=== PATIENT | male | born 1930 | race Caucasian/White ===

== ENCOUNTER 2018-07-27 09:28 | Emergency (ER) | payer OTHER ==
[2018-07-27] MEDS ORDERED: TRAMADOL HCL 50 MG TAB ONE (10:49)
--- NOTE | 2018-07-27 11:40 | EDPHYS ---
Physician Documentation [facility] Name: David Gutierrez Age: 88 yrs Sex: Male : 1930 Arrival Date: 07/27/2018 Time: 09:32 Bed 18 Private MD: Joe Quintana V ED Physician Mikey Cadet HPI: 07/27 11:30 This 88 yrs old Male presents to ER via Ambulatory with complaints of Back pm1 Pain, Hip Pain. 11:30 The patient presents with pain that is acute, with no known mechanism of injury. The pm1 symptoms are located in the low back. Onset: The symptoms/episode began/occurred 1 month(s) ago. The pain radiates to the right leg. Associated signs and symptoms: Pertinent negatives: abdominal pain, chest pain, constipation, dysuria, fever, incontinence, numbness, tingling. The problem was sustained from unknown cause. Modifying factors: The patient symptoms are alleviated by remaining still, the patient symptoms are aggravated by Standing up from seated position. Severity of symptoms: in the emergency department the symptoms are actually worse. The patient has not experienced similar symptoms in the past. The patient has not recently seen a physician, the patient's primary care provider is Dr. Quintana. Historical: - Allergies: 09:48 No Known Allergies; la1 - PMHx: 09:48 None; la1 - PSHx: 09:48 Knee surgery; Tonsillectomy; la1 - Immunization history:: Adult Immunizations up to date. - Social history:: Smoking status: Patient/guardian denies using tobacco. - Ebola Screening: : No symptoms or risks identified at this time. ROS: 11:30 Constitutional: Negative for fever, chills, and weight loss, Eyes: Negative for injury, pm1 pain, redness, and discharge, ENT: Negative for injury, pain, and discharge, Neck: Negative for injury, pain, and swelling, Cardiovascular: Negative for chest pain, palpitations, and edema, Respiratory: Negative for shortness of breath, cough, wheezing, and pleuritic chest pain, Abdomen/GI: Negative for abdominal pain, nausea, vomiting, diarrhea, and constipation. 11:30 : Negative for injury, bleeding, discharge, and swelling, MS/Extremity: Negative for injury and deformity, Skin: Negative for injury, rash, and discoloration, Neuro: Negative for headache, weakness, numbness, tingling, and seizure. 11:30 Back: Positive for pain with movement, of the right low back. Exam: 11:30 Constitutional: This is a well developed, well nourished patient who is awake, alert, pm1 and in no acute distress. Head/Face: Normocephalic, atraumatic. Eyes: Pupils equal round and reactive to light, extra-ocular motions intact. Lids and lashes normal. Conjunctiva and sclera are non-icteric and not injected. Cornea within normal limits. Periorbital areas with no swelling, redness, or edema. ENT: Nares patent. No nasal discharge, no septal abnormalities noted. Tympanic membranes are normal and external auditory canals are clear. Oropharynx with no redness, swelling, or masses, exudates, or evidence of obstruction, uvula midline. Mucous membranes moist. Neck: Trachea midline, no thyromegaly or masses palpated, and no cervical lymphadenopathy. Supple, full range of motion without nuchal rigidity, or vertebral point tenderness. No Meningismus. Chest/axilla: Normal chest wall appearance and motion. Nontender with no deformity. No lesions are appreciated. Cardiovascular: Regular rate and rhythm with a normal S1 and S2. No gallops, murmurs, or rubs. Normal PMI, no JVD. No pulse deficits. Respiratory: Lungs have equal breath sounds bilaterally, clear to auscultation and percussion. No rales, rhonchi or wheezes noted. No increased work of breathing, no retractions or nasal flaring. Abdomen/GI: Soft, non-tender, with normal bowel sounds. No distension or tympany. No guarding or rebound. No evidence of tenderness throughout. 11:30 Skin: Warm, dry with normal turgor. Normal color with no rashes, no lesions, and no evidence of cellulitis. MS/ Extremity: Pulses equal, no cyanosis. Neurovascular intact. Full, normal range of motion. 11:30 Back: kyphosis, that is marked, scoliosis that is marked. 11:30 Neuro: Orientation: is normal, Motor: moves all fours, strength is 5/5 in all extremities, Sensation: is normal, no obvious gross deficits, Gait: is steady, at a normal pace, without difficulty. Vital Signs: 09:50 Pulse 78; Resp 18; Temp 98.6; Pulse Ox 98% on R/A; Weight 61.23 kg; Height 5 ft. 8 in. la1 (172.72 cm); Pain 5/10; 09:51 BP 135 / 81; la1 09:50 Body Mass Index 20.53 (61.23 kg, 172.72 cm) la1 MDM: 10:19 Patient medically screened. pm1 10:35 Data reviewed: vital signs. Data interpreted: Pulse oximetry: on room air is 98 %. pm1 Interpretation: normal. 11:38 Counseling: I had a detailed discussion with the patient and/or guardian regarding: the pm1 historical points, exam findings, and any diagnostic results supporting the discharge/admit diagnosis, the need for outpatient follow up, to return to the emergency department if symptoms worsen or persist or if there are any questions or concerns that arise at home. Administered Medications: 10:40 Drug: traMADol 50 mg Route: PO; aa5 11:10 Follow up: Response: No adverse reaction aa5 Disposition: 07/27/18 11:39 Discharged to Home. Impression: Radiculopathy, lumbar region. - Condition is Stable. - Discharge Instructions: Lumbosacral Radiculopathy. - Prescriptions for Tramadol 50 mg Oral Tablet - take 1 tablet by ORAL route every 8 hours as needed; 20 tablet. - Medication Reconciliation Form, Thank You Letter, Prescription Opioid Use form. - Follow up: Emergency Department; When: As needed; Reason: Worsening of condition. Follow up: Joe Quintana MD; When: 2 - 3 days; Reason: Recheck today's complaints, Continuance of care, Re-evaluation by your physician. - Problem is new. - Symptoms have improved. Addendum: 08/07/2018 15:24 Co-signature as Attending Physician, Mikey Cadet MD Available for consultation at p s1 all times. . Signatures: Cyndie Chu RN RN aa5 Maurice Rodas RN RN la1 Stewart Valerio, SUPERVISOR CEREAL SUPERVISOR CEREAL pm1 Mikey Cadet MD MD ps1 Corrections: (The following items were deleted from the chart) 07/27 11:50 11:39 07/27/2018 11:39 Discharged to Home. Impression: Radiculopathy, lumbar region. aa5 Condition is Stable. Forms are Medication Reconciliation Form, Thank You Letter, Antibiotic Education, Prescription Opioid Use. Follow up: Emergency Department; When: As needed; Reason: Worsening of condition. Follow up: Joe Quintana; When: 2 - 3 days; Reason: Recheck today's complaints, Continuance of care, Re-evaluation by your physician. Problem is new. Symptoms have improved. pm1
--- NOTE | 2018-07-27 11:40 | ER ---
Nurse's Notes [facility] Name: David Gutierrez Age: 88 yrs Sex: Male : 1930 Arrival Date: 07/27/2018 Time: 09:32 Bed 18 Private MD: Joe Quintana V Diagnosis: Radiculopathy, lumbar region Presentation: 07/27 09:48 Presenting complaint: Patient states: I have been having pain in my right hip for the la1 last month but its getting much worse and I am getting weaker. Transition of care: patient was not received from another setting of care. Onset of symptoms was July 27, 2018. Risk Assessment: Do you want to hurt yourself or someone else? Patient reports no desire to harm self or others. Initial Sepsis Screen: Does the patient meet any 2 criteria? No. Patient's initial sepsis screen is negative. Does the patient have a suspected source of infection? No. Patient's initial sepsis screen is negative. Care prior to arrival: None. 09:48 Method Of Arrival: Ambulatory la1 09:48 Acuity: EDISON 4 la1 Historical: - Allergies: 09:48 No Known Allergies; la1 - PMHx: 09:48 None; la1 - PSHx: 09:48 Knee surgery; Tonsillectomy; la1 - Immunization history:: Adult Immunizations up to date. - Social history:: Smoking status: Patient/guardian denies using tobacco. - Ebola Screening: : No symptoms or risks identified at this time. Screenin:20 Abuse screen: Denies threats or abuse. Nutritional screening: No deficits noted. aa5 Tuberculosis screening: No symptoms or risk factors identified. Fall Risk Ambulatory Aid- Crutches/Cane/Walker (15 pts). Gait- Impaired (20 pts.). Total Rowley Fall Scale indicates Low Risk Score (25-44 pts). Fall prevention measures have been instituted. Assessment: 10:20 General: Appears comfortable, Behavior is calm, cooperative. Pain: Complains of pain in aa5 right low back Pain radiates to right leg Pain currently is 0 out of 10 on a pain scale. Quality of pain is described as sharp, shooting, Pain began approximately 3-4 weeks ago Is intermittent, Aggravated by increased activity, weight bearing. Neuro: Level of Consciousness is awake, alert, obeys commands, Oriented to person, place, time, situation. Cardiovascular: Patient's skin is warm and dry. Respiratory: Airway is patent Respiratory effort is even, unlabored, Respiratory pattern is regular, symmetrical. GI: No signs and/or symptoms were reported involving the gastrointestinal system. : No signs and/or symptoms were reported regarding the genitourinary system. EENT: No signs and/or symptoms were reported regarding the EENT system. Derm: Skin is pink, warm \T\ dry. Musculoskeletal: Range of motion: intact in all extremities, Pt is ambulatory with a cane, scoliosis noted. 11:40 Reassessment: Patient is alert, oriented x 3, equal unlabored respirations, skin aa5 warm/dry/pink. Vital Signs: 09:50 Pulse 78; Resp 18; Temp 98.6; Pulse Ox 98% on R/A; Weight 61.23 kg; Height 5 ft. 8 in. la1 (172.72 cm); Pain 5/10; 09:51 BP 135 / 81; la1 09:50 Body Mass Index 20.53 (61.23 kg, 172.72 cm) la1 ED Course: 09:32 Patient arrived in ED. mr 09:32 Joe Quintana MD is Private Physician. mr 09:49 Triage completed. la1 09:49 Arm band placed on left wrist. la1 09:59 Cyndie Chu, DIANE is Primary Nurse. aa5 10:02 Stewart Valerio NP is PHCP. pm1 10:02 Mikey Cadet MD is Attending Physician. pm1 10:20 Patient has correct armband on for positive identification. Bed in low position. Call aa5 light in reach. Side rails up X 1. Adult w/ patient. 11:39 Joe Quintana MD is Referral Physician. pm1 11:40 No provider procedures requiring assistance completed. aa5 11:40 Patient did not have IV access during this emergency room visit. aa5 Administered Medications: 10:40 Drug: traMADol 50 mg Route: PO; aa5 11:10 Follow up: Response: No adverse reaction aa5 Outcome: 11:39 Discharge ordered by . pm1 11:40 Discharged to home ambulatory, with family. aa5 11:40 Condition: improved 11:40 Discharge instructions given to patient, family, Instructed on discharge instructions, follow up and referral plans. medication usage, Demonstrated understanding of instructions, follow-up care, medications, Prescriptions given X 1. 11:50 Patient left the ED. aa5 Signatures: Adelina Godoy Audri RN RN aa5 Maurice Rodas RN RN la1 Stewart Valerio, FUR GRADER FUR GRADER pm1
[2018-07-27 13:01] VITALS: TEMP 98.6; O2SAT 98
== END 2018-07-27 11:50 | disposition home or self-care (01) ==
LOC: ER 09:28
DX: M54.16 Radiculopathy, lumbar region (principal)
CPT/HCPCS: 99283

== ENCOUNTER 2018-11-24 10:45 | Day surgery (SDC) | payer OTHER ==
[2018-11-24] MEDS ORDERED: CYCLOPENTOLATE 1% OPTH 2 ML ONE (11:33)
[2018-11-24] MEDS ORDERED: PHENYLEPHRINE 10% OPTH 5ML ONE (11:33)
[2018-11-24] MEDS ORDERED: NA CHLORIDE 0.9% 500 ML ONE (11:33)
[2018-11-24] MEDS: BUPIVACAINE 0.25% PF 10 ML VIAL ONE ×3 (11:41→12:26)
[2018-11-24] MEDS: TETRACAINE HCL 0.5% 4ML OPTH ONE ×3 (11:41→12:19)
[2018-11-24] MEDS: LIDOCAINE 2% MPF 5 ML VIAL ONE ×3 (11:41→12:26)
[2018-11-24] MEDS ORDERED: CYCLOPENTOLATE 1% OPTH 2 ML OPTH ONE ×2 (11:43→11:50)
[2018-11-24] MEDS ORDERED: EPINEPHRINE/PF 1 MG/ML AMP ONE (11:43)
[2018-11-24] MEDS ORDERED: BALANCED SALT IRRIG PLAIN 500 ML BTL IRR ONE (11:43)
[2018-11-24] MEDS ORDERED: NS 0.9% VIAL 10 ML ONE (11:43)
[2018-11-24] MEDS ORDERED: DUOVISC 1 KIT OPTH ONE ×2 (11:43→13:36)
[2018-11-24] MEDS ORDERED: PHENYLEPHRINE 10% OPTH 5ML OPTH ONE ×2 (11:43→11:50)
[2018-11-24] MEDS ORDERED: MOXIFLOXACIN HCL 10 DROPS/ML **OR USE OPTH ONE (11:44)
[2018-11-24] MEDS ORDERED: LIDOCAINE 1% MPF 5 ML VIAL ONE (12:36)
[2018-11-24] MEDS ORDERED: PROPOFOL 200 MG/20 ML VIAL IV ONE (12:36)
--- NOTE | 2018-11-24 13:14 | P.BOP ---
Preoperative diagnosis: Nuclear sclerotic cataract OS Postoperative diagnosis: Same Primary procedure: Phacoemulsification with IOL OS Estimated blood loss: None Anesthesia: Local (Subtenon's infusion with anesthesia for cataract surgery) Complications: None Implants: SN60WF +21.5 Transferred to: Other (Day surgery) Condition: Good
[2018-11-24 13:42] VITALS: BP 158/81; TEMP 97.8; O2SAT 96
--- NOTE | 2018-11-24 23:38 | OP ---
Date of Procedure: 11/24/2018 Surgeon: Shu Dutton MD Anesthesiologist: Xander Ward CRNA and Phil Elizondo MD. Preoperative Diagnoses: Nuclear sclerotic cataract, left eye. Operation Performed: Phacoemulsification with intraocular lens implant, left eye. Anesthesia: Per cataract surgery. Complications: None. Description Of Procedure: In day surgery, the patient was prepped with Betadine and draped. A conju nctival incision was made in the inferior nasal quadrant with Debbie scissors. A sub-Tenon block c onsisting of a 1:1 mixture of 2% Xylocaine and 0.25% bupivacaine was placed through the conjunctival incision with a blunt cannula. A Honan balloon was placed over the eye and the patient was transferr ed to the operating room. In the operating room the patient was prepped and draped in the usual sterile fashion for ophthalmic surgery. A lid speculum was placed in the left eye. Two paracentesis sites were made superiorly and inferiorly in the limbal cornea. Viscoat was placed in the anterior chamber and a crescent blade wa s used to make a corneal groove and tunnel, and a keratome was used to enter the anterior chamber. P rovisc was placed in the anterior chamber and a 360 degree capsulotomy was performed with a cystitome . The lens was hydrodissected with BSS and rotated freely. The lens was removed with a stop and cho p technique. 26.34 phaco CDE was used to remove the lens. Residual cortex was removed with the irri gation and aspiration. Provisc was placed in the capsular bag. An SN60WF +21.5 lens was placed in t he capsular bag without complications. Irrigation and aspiration were used to remove residual viscoe lastic. The paracentesis sites were hydrated with BSS. The wound and paracentesis sites were inspec leon and found to be watertight. Vigamox 0.07 cc was placed intracamerally at the end of the procedur e. The eye was irrigated with balanced salt solution. The eye was patched with a soft cotton patch and Pantoja metal shield. The patient was returned to day surgery in good condition. Comments: 1:5000 epi was used in the anterior chamber prior to Viscoat. Extra Viscoat was used in t he middle of phacoemulsification. Discharge Instructions: Mr. Matt is discharged to home in good condition. YAYA/JW Voice ID: [id number] Report ID: [id number]
== END 2018-11-24 13:52 | disposition home or self-care (01) ==
LOC: OR 10:45
PROVIDERS: ATTEND Ophthalmology Retina Specialist
PROC: 08RK3JZ Replacement of Left Lens with Synthetic Substitute, Percutaneous Approach (ICD-10-PCS; principal; 2018-11-24 11:00)
DX: H25.12 Age-related nuclear cataract, left eye (principal)
CPT/HCPCS: 66984; J2704; J0171

== ENCOUNTER 2020-05-29 13:46 | Emergency (ER) | payer OTHER ==
--- NOTE | 2020-05-29 14:29 | RAD REPORT ---
EXAM DESCRIPTION: CT - [id number] - 05/29/2020 2:08 pm CLINICAL HISTORY: fall, trauma to head, face and neck COMPARISON: No comparisons TECHNIQUE: Axial 5 mm thick images of the head were obtained. Axial 2 mm thick images of the cervic al spine were obtained with sagittal and coronal reconstruction images generated and reviewed. All CT scans are performed using dose optimization technique as appropriate and may include automated exposure control or mA/KV adjustment according to patient size. FINDINGS: No intracranial hemorrhage, mass, edema or acute intracranial finding. No cortical edema o r sulcal effacement. Moderate severity atrophy and chronic ischemic changes are present. Ventricles a re in proportion to volume loss. Arterial and physiologic calcifications are present. No extra-axial fluid collections. Mastoid air cells are clear. Minimal air-fluid level in the right maxillary sinus without additional findings that would suggest the fluid is trauma related. No globe or orbital levi nt abnormality. Small left frontal scalp hematoma present. Underlying bone is intact. Right deviation of the nasal septum without fracture. Cervical bodies are normal in height. There is retrolisthesis of C5 and C6 relative to the adjacent C 4 and C7 bodies. Advanced disc space narrowing and degenerative endplate changes present at C3-4, C5- 6 and C6-7. Degenerative changes are present at the dens C1 level. Prominent facet joint degenerative changes are present. Mild foraminal encroachment seen at C3-4. Moderate severity foraminal stenosis on the right at C4-5 and moderate bilateral C6-7 foraminal encroachment. No fracture or acute bony ab normality. No pathologic bone process. Central canal detail is inherently limited. No paraspinal mass or hematoma. IMPRESSION: Moderate severity atrophy and chronic ischemic changes are present with no acute intracr anial finding. Left frontal scalp hematoma present with underlying bone intact. Advanced cervical spine degenerative changes are present without an acute fracture seen. Central glenn l detail is inherently limited.
--- NOTE | 2020-05-29 14:31 | RAD REPORT ---
EXAM DESCRIPTION: RAD - Hand Right 3 View - 05/29/2020 2:16 pm CLINICAL HISTORY: fall COMPARISON: <Comparisons>None. FINDINGS: No fracture is identified. There is no dislocation or periosteal reaction noted. Advanced degenerative change present at the radiocarpal joint space where there is joint space narrowing with deformity and volume loss of the scaphoid and lunate bones. This appears degenerative and not pathol ogic. Degenerative change elsewhere is relatively mild for age. 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 No fracture or acute finding identifiable.
[2020-05-29] MEDS ORDERED: LIDOCAINE 1% W/EPI 1:100,000 MDV 20 ML VIAL ONE (14:46)
--- NOTE | 2020-05-29 15:10 | ER ---
Nurse's Notes [facility] Name: David Gutierrez Age: 89 yrs Sex: Male : 1930 Arrival Date: 05/29/2020 Time: 13:48 Bed 6 Private MD: Diagnosis: Contusion of right hand;Fall on same level from slipping, tripping and stumbling;Laceration without foreign body of unspecified part of head Presentation: 05/29 13:49 Chief complaint: EMS states: tripped and fell onto pavement walking to his neighbors sv house. Abrasion noted to left side of forehead and to the right fingers. Denies LOC. Care prior to arrival: None. Mechanism of Injury: Fall from standing position. Trauma event details: Injury occurred in the [facility], Injury occurred: at home. Injury occurred: May 29, 2020. 13:49 Method Of Arrival: EMS: [facility] sv 13:49 Acuity: EDISON 2 sv 13:53 Coronavirus screen: Client denies travel out of the [place] in the last 14 days. At this sv time, the client does not indicate any symptoms associated with coronavirus-19. Ebola Screen: No symptoms or risks identified at this time. Initial Sepsis Screen: Does the patient meet any 2 criteria? No. Patient's initial sepsis screen is negative. Does the patient have a suspected source of infection? No. Patient's initial sepsis screen is negative. Risk Assessment: Do you want to hurt yourself or someone else? Patient reports no desire to harm self or others. Onset of symptoms was May 29, 2020. Trauma Activation: Not Applicable Physician: ED Physician; Name: ; Notified At: ; Arrived At: Physician: General Surgeon; Name: ; Notified At: ; Arrived At: Physician: Radiology; Name: ; Notified At: ; Arrived At: Physician: Respiratory; Name: ; Notified At: ; Arrived At: Physician: Lab; Name: ; Notified At: ; Arrived At: Historical: - Allergies: 13:52 No Known Allergies; sv - PSHx: 13:52 Knee surgery; Tonsillectomy; sv - Immunization history:: Adult Immunizations up to date. - Social history:: Smoking status: Patient denies any tobacco usage or history of. Screenin:54 Abuse screen: Denies threats or abuse. Denies injuries from another. Tuberculosis sv screening: No symptoms or risk factors identified. 13:54 Nutritional screening: No deficits noted. Fall Risk No fall in past 12 months (0 pts). sv No secondary diagnosis (0 pts). No IV (0 pts). Ambulatory Aid- None/Bed Rest/Nurse Assist (0 pts). Gait- Normal/Bed Rest/Wheelchair (0 pts) Mental Status- Oriented to own ability (0 pts). Total Rowley Fall Scale indicates No Risk (0-24 pts). Primary Survey: 13:49 NO uncontrolled hemorrhage observed. A: The patient is alert. Airway: patent, No sv supplemental oxygen in use on arrival. Oral cavity: clear. Breathing/Chest: Respiratory pattern: regular, Respiratory effort: spontaneous, unlabored, Chest inspection: symmetrical rise and fall of the chest. Circulation: Pulses: palpable right radial artery and left radial artery. Skin color: pink, Skin temperature: warm, dry. Disability Alert. Exposure/Environment: All clothing and personal items were removed. Forensic evidence collection is not deemed to be indicated at this time. Items placed in patient belonging bag. There is no evidence of uncontrolled external bleeding. 14:19 Reassessment Airway Airway Patent Oxygen No O2 Oral cavity Clear Trachea Midline sv Breathing/Chest Respiratory pattern Regular Respiratory effort Spontaneous Unlabored Chest inspection Symmetrical Circulation Pulses Palpable Color [place] Temperature Warm Dry Disability Alert. Secondary Survey: 13:49 HEENT: Head Other abrasion to the left forehead. Gastrointestinal: No deficits noted. sv : No signs and/or symptoms were reported regarding the genitourinary system. Musculoskeletal: No signs and/or symptoms reported regarding the musculoskeletal system. Assessment: 15:04 Reassessment: Patient appears in no apparent distress at this time. No changes from sv previously documented assessment. Patient and/or family updated on plan of care and expected duration. Pain level reassessed. Patient is alert, oriented x 3, equal unlabored respirations, skin warm/dry/pink. 15:35 Reassessment: Patient appears in no apparent distress at this time. No changes from sv previously documented assessment. Patient and/or family updated on plan of care and expected duration. Pain level reassessed. Patient is alert, oriented x 3, equal unlabored respirations, skin warm/dry/pink. Vital Signs: 13:51 BP 161 / 74; Pulse 85; Resp 16; Temp 98.7; Pulse Ox 98% ; Pain 0/10; sv 14:21 BP 151 / 73; Pulse 84; Resp 16; Temp 98.8; Pulse Ox 98% ; sv 15:04 BP 143 / 70; Pulse 66; Resp 16; Temp 98.7; Pulse Ox 96% ; sv [place] Coma Score: 13:51 Eye Response: spontaneous(4). Verbal Response: oriented(5). Motor Response: obeys sv commands(6). Total: 15. 14:21 Eye Response: spontaneous(4). Verbal Response: oriented(5). Motor Response: obeys sv commands(6). Total: 15. 15:04 Eye Response: spontaneous(4). Verbal Response: oriented(5). Motor Response: obeys sv commands(6). Total: 15. Trauma Score (Adult): 13:51 Eye Response: spontaneous(1); Verbal Response: oriented(1); Motor Response: obeys sv commands(2); Systolic BP: > 89 mm Hg(4); Respiratory Rate: 10 to 29 per min(4); [place] Score: 15; Trauma Score: 12 14:21 Eye Response: spontaneous(1); Verbal Response: oriented(1); Motor Response: obeys sv commands(2); Systolic BP: > 89 mm Hg(4); Respiratory Rate: 10 to 29 per min(4); [place] Score: 15; Trauma Score: 12 15:04 Eye Response: spontaneous(1); Verbal Response: oriented(1); Motor Response: obeys sv commands(2); Systolic BP: > 89 mm Hg(4); Respiratory Rate: 10 to 29 per min(4); Kenneth Score: 15; Trauma Score: 12 ED Course: 13:48 Patient arrived in ED. sv 13:48 Delfina Bojorquez RN is Primary Nurse. sv 13:49 Aneudy Mueller PA is PHCP. cp 13:49 Nagi Payne MD is Attending Physician. cp 13:51 Triage completed. sv 13:54 Patient has correct armband on for positive identification. Bed in low position. Call sv light in reach. Side rails up X2. Pulse ox on. NIBP on. Door closed. Head of bed elevated. 13:55 Nurse Practitioner and/or Physician Call Center Director to see patient. sv 13:55 Arm band placed on. sv 13:55 Patient maintains SpO2 saturation greater than 95% on room air. sv 13:55 Thermoregulation: warm blanket given to patient. sv 14:08 CT Head C Spine In Process Unspecified. EDMS 14:15 XRAY Hand RIGHT 3 View In Process Unspecified. EDMS 14:18 Patient moved back from radiology. sv 14:22 Awaiting radiology results. sv 15:10 Assist provider with laceration repair on forehead that was 2.5 cm. or less using sv sutures. Set up tray. Performed by Aneudy CAMPOVERDE Dressed with 4X4s, Patient tolerated well. 15:19 Dressings: non-adherent dressing x 1 forehead Tegaderm X 1; forehead triple anitbiotic dh3 applied to forehead. 15:35 Patient did not have IV access during this emergency room visit. sv Administered Medications: 15:08 Drug: Lidocaine-Epinephrine -1%: (1:100,000) 10 ml {Note: given to Aneudy CAMPOVERDE for sv procedure.} Volume: 20 ml; Route: Infiltration; Intake: 13:51 PO: 0ml; Total: 0ml. sv 14:21 PO: 0ml; Total: 0ml. sv 15:04 PO: 0ml; Total: 0ml. sv Output: 13:51 Urine: 0ml; Total: 0ml. sv 14:21 Urine: 0ml; Total: 0ml. sv 15:04 Urine: 0ml; Total: 0ml. sv Outcome: 15:10 Discharge ordered by MD. cp 15:35 Patient left the ED. sv 15:35 Discharged to home via wheelchair, with family. sv 15:35 Condition: stable 15:35 Condition: improved 15:35 Discharge instructions given to patient, family, Instructed on discharge instructions, follow up and referral plans. wound care, Demonstrated understanding of instructions, follow-up care, wound care. 15:35 Patient's length of stay was not longer than 2 hours. sv Signatures: Dispatcher [employer] Delfina Tillman RN RN Aneudy Luis PA PA cp Herrera, Deanna 3 Corrections: (The following items were deleted from the chart) 18:09 15:35 No provider procedures requiring assistance completed. sv sv
--- NOTE | 2020-05-29 15:10 | EDPHYS ---
Physician Documentation [facility] Name: David Gutierrez Age: 89 yrs Sex: Male : 1930 Arrival Date: 05/29/2020 Time: 13:48 Bed 6 Private MD: ED Physician Nagi Payne HPI: 05/29 13:49 This 89 yrs old Male presents to ER via Unassigned with complaints of Fall cp Injury. 13:49 Details of fall: The patient fell from an upright position, while walking, and struck a cp concrete surface. Onset: The symptoms/episode began/occurred just prior to arrival. Associated injuries: The patient sustained injury to the head, laceration, of the forehead, right hand, contusion. Historical: - Allergies: 13:52 No Known Allergies; sv - PSHx: 13:52 Knee surgery; Tonsillectomy; sv - Immunization history:: Adult Immunizations up to date. - Social history:: Smoking status: Patient denies any tobacco usage or history of. ROS: 13:50 Constitutional: Negative for body aches, chills, fever, poor PO intake. cp 13:50 Neck: Negative for pain with movement, pain at rest, stiffness. 13:50 Cardiovascular: Negative for chest pain, palpitations. 13:50 Respiratory: Negative for cough, shortness of breath, wheezing. 13:50 Abdomen/GI: Negative for abdominal pain, nausea, vomiting, diarrhea, constipation. 13:50 Back: Negative for pain at rest, pain with movement. 13:50 MS/extremity: Positive for ecchymosis, of the right hand. 13:50 Skin: Positive for laceration(s), of the forehead. 13:50 Neuro: Negative for altered mental status, dizziness, loss of consciousness, syncope, weakness. 13:50 All other systems are negative. Exam: 13:51 Constitutional: The patient appears in no acute distress, alert, awake, cp non-diaphoretic, non-toxic, well developed, well nourished. 13:51 Head/face: Noted is a laceration(s), of the forehead. 13:51 Eyes: Periorbital structures: appear normal, Pupils: equal, round, and reactive to light and accomodation, Extraocular movements: intact throughout, Conjunctiva: normal, no exudate, no injection, Lids and lashes: appear normal, bilaterally. 13:51 ENT: External ear(s): are unremarkable, Nose: is normal, Mouth: Lips: moist, Oral mucosa: moist, Posterior pharynx: Airway: no evidence of obstruction, patent. 13:51 Neck: C-spine: C-collar placed in ED. 13:51 Chest/axilla: Inspection: Palpation: crepitus, is not appreciated, tenderness, is not cp appreciated. 13:51 Cardiovascular: Rate: normal. 13:51 Respiratory: the patient does not display signs of respiratory distress, Respirations: normal, no use of accessory muscles, no retractions, labored breathing, is not present, Breath sounds: are clear throughout, no decreased breath sounds. 13:51 Abdomen/GI: Inspection: abdomen appears normal, Palpation: abdomen is soft and non-tender, in all quadrants. 13:51 Musculoskeletal/extremity: Extremities: grossly normal except: noted in the right hand: cp ecchymosis, tenderness. 13:51 Back: pain, is absent, ROM is normal. cp 13:51 Neuro: Orientation: to person, place \T\ time. Mentation: is normal, Cerebellar function: Romberg testing is negative, normal finger to nose testing, Motor: moves all fours, strength is normal, Sensation: is normal. Vital Signs: 13:51 BP 161 / 74; Pulse 85; Resp 16; Temp 98.7; Pulse Ox 98% ; Pain 0/10; sv 14:21 BP 151 / 73; Pulse 84; Resp 16; Temp 98.8; Pulse Ox 98% ; sv 15:04 BP 143 / 70; Pulse 66; Resp 16; Temp 98.7; Pulse Ox 96% ; sv Clifford Coma Score: 13:51 Eye Response: spontaneous(4). Verbal Response: oriented(5). Motor Response: obeys sv commands(6). Total: 15. 14:21 Eye Response: spontaneous(4). Verbal Response: oriented(5). Motor Response: obeys sv commands(6). Total: 15. 15:04 Eye Response: spontaneous(4). Verbal Response: oriented(5). Motor Response: obeys sv commands(6). Total: 15. Trauma Score (Adult): 13:51 Eye Response: spontaneous(1); Verbal Response: oriented(1); Motor Response: obeys sv commands(2); Systolic BP: > 89 mm Hg(4); Respiratory Rate: 10 to 29 per min(4); Kenneth Score: 15; Trauma Score: 12 14:21 Eye Response: spontaneous(1); Verbal Response: oriented(1); Motor Response: obeys sv commands(2); Systolic BP: > 89 mm Hg(4); Respiratory Rate: 10 to 29 per min(4); Kenneth Score: 15; Trauma Score: 12 15:04 Eye Response: spontaneous(1); Verbal Response: oriented(1); Motor Response: obeys sv commands(2); Systolic BP: > 89 mm Hg(4); Respiratory Rate: 10 to 29 per min(4); Clifford Score: 15; Trauma Score: 12 Laceration: 15:06 Wound Repair of 3.5cm ( 1.4in ) subcutaneous laceration to forehead. Irregularly cp shaped.. Distal neuro/vascular/tendon intact. Anesthesia: Wound infiltrated with 6 mls of 1% lidocaine w/ Epi. Wound prep: Simple cleansing by me. Skin closed with 8 5-0 Prolene using interrupted sutures and sterile technique. Dressed with Bacitracin, 4x4's. Patient tolerated well. MDM: 13:58 Patient medically screened. cp 14:00 Differential diagnosis: closed head injury, contusion, fracture, multiple trauma. cp 15:09 Data reviewed: vital signs, nurses notes, radiologic studies, CT scan, plain films. 15:09 Counseling: I had a detailed discussion with the patient and/or guardian regarding: the historical points, exam findings, and any diagnostic results supporting the discharge/admit diagnosis, lab results, the need for outpatient follow up, a family practitioner, to return to the emergency department if symptoms worsen or persist or if there are any questions or concerns that arise at home. Response to treatment: the patient's symptoms have markedly improved after treatment, and as a result, I will discharge patient. 05/29 13:49 Order name: CT Head C Spine; Complete Time: 14:33 05/29 14:34 Interpretation: Reviewed report. 05/29 13:49 Order name: XRAY Hand RIGHT 3 View; Complete Time: 14:33 05/29 14:24 Order name: Dressing - Wound; Complete Time: 15:21 05/29 14:24 Order name: Gloves, Sterile; Complete Time: 14:38 cp 05/29 14:24 Order name: Setup Suture Tray; Complete Time: 14:38 cp Administered Medications: 15:08 Drug: Lidocaine-Epinephrine -1%: (1:100,000) 10 ml {Note: given to Aneudy CAMPOVERDE for sv procedure.} Volume: 20 ml; Route: Infiltration; Disposition: 15:30 Chart complete. cp 15:59 Co-signature as Attending Physician, Nagi Payne MD. rn Disposition: 05/29/20 15:10 Discharged to Home. Impression: Contusion of right hand, Fall on same level from slipping, tripping and stumbling, Laceration without foreign body of unspecified part of head. - Condition is Stable. - Discharge Instructions: Hand Contusion, Head Injury, Adult, Laceration Care, Adult. - Medication Reconciliation Form, Thank You Letter, Antibiotic Education, Prescription Opioid Use form. - Follow up: Private Physician; When: 2 - 3 days; Reason: Wound Recheck. - Problem is new. - Symptoms have improved. Signatures: Dispatcher [employer] Delfina Tillman RN RN sv Nieto, Roman, MD MD rn Page, Corey, PA PA cp Corrections: (The following items were deleted from the chart) 14:07 13:51 Neck: C-spine: cp cp 15:35 15:10 05/29/2020 15:10 Discharged to Home. Impression: Contusion of right hand; Fall on sv same level from slipping, tripping and stumbling; Laceration without foreign body of unspecified part of head. Condition is Stable. Forms are Medication Reconciliation Form, Thank You Letter, Antibiotic Education, Prescription Opioid Use. Follow up: Private Physician; When: 2 - 3 days; Reason: Wound Recheck. Problem is new. Symptoms have improved. cp
[2020-05-29 15:49] VITALS: BP 143/70; TEMP 98.7; O2SAT 96
== END 2020-05-29 15:35 | disposition home or self-care (01) ==
LOC: ER 13:46
PROC: 0JQ10ZZ Repair Face Subcutaneous Tissue and Fascia, Open Approach (ICD-10-PCS; principal; 2020-05-29)
DX: S01.81XA Laceration without foreign body of other part of head, initial encounter (principal); W01.198A Fall on same level from slipping, tripping and stumbling with subsequent striking against other object, initial encounter; Y93.01 Activity, walking, marching and hiking; Y92.9 Unspecified place or not applicable
CPT/HCPCS: 70450; 72125; 99284

== ENCOUNTER 2020-09-09 23:03 | Inpatient (IN) | payer OTHER ==
[2020-09-09 23:34] LABS: Absolute Lymphocytes (CBC) 1.5 K/uL (0.7-4.9); Basophils % 0.8 % (0-1.3); Hematocrit 27.3 % (39.6-49.0); Lymphocytes % 11.1 % (15.3-44.8); MPV 7.9 fL (7.6-11.3); RBC Red Blood Cell Count 3.03 M/uL (4.33-5.43)
[2020-09-09 23:39] LABS: Protime INR 0.98
[2020-09-09 23:57] LABS: ALT/SGPT 17 U/L (12-78); AST/SGOT 19 U/L (15-37); Albumin 3.2 g/dL (3.4-5.0); Alkaline Phosphatase 46 U/L (45-117); BUN Blood Urea Nitrogen 23 mg/dL (7-18); Bicarbonate 26 mmol/L (21-32); Bilirubin Direct < 0.1 mg/dL (0-0.2); Bilirubin Total 0.2 mg/dL (0.2-1.0); Glucose Level 180 mg/dL (74-106); Potassium 4.2 mmol/L (3.5-5.1); Protein, Total 6.3 g/dL (6.4-8.2); Sodium Level 143 mmol/L (136-145)
[2020-09-10 03:41] LABS: Hematocrit 21.7 % (39.6-49.0)
--- NOTE | 2020-09-10 04:06 | ER ---
Nurse's Notes [facility] Name: David Gutierrez Age: 89 yrs Sex: Male : 1930 Arrival Date: 09/09/2020 Time: 23:05 Bed 4 Private MD: Diagnosis: Symptomatic Anemia;Left Ankle Varicose Vein Bleeding-Resolved Presentation: 09/09 23:07 Chief complaint: EMS states: HE WAS GETTING READY TO GO TO BED. WIPING HIS LEFT FOOT, rv STARTED BLEEDING. LOST VOLUME OF BLOOD, WENT UNRESPONSIVE AND HYPOTENSIVE, GIVEN BOLUS NS OF 250ML, WENT CONSCIOUS AND COHERENT. Coronavirus screen: Client denies travel out of the [place] in the last 14 days. Ebola Screen: No symptoms or risks identified at this time. Initial Sepsis Screen: Does the patient meet any 2 criteria? No. Patient's initial sepsis screen is negative. Does the patient have a suspected source of infection? No. Patient's initial sepsis screen is negative. Risk Assessment: Do you want to hurt yourself or someone else? Patient reports no desire to harm self or others. Onset of symptoms was September 09, 2020 at 22:00. 23:07 Method Of Arrival: EMS: [facility] rv 23:07 Acuity: EDISON 2 rv Triage Assessment: 23:10 General: Appears uncomfortable, Behavior is calm, cooperative. Pain:. EENT: No signs rv and/or symptoms were reported regarding the EENT system. Neuro: Level of Consciousness is awake, alert, obeys commands, Oriented to person, place, time, situation. Cardiovascular: Patient's skin is warm and dry. Respiratory: Airway is patent. Derm: Wound noted left lateral malleolus Wound is SMALL WOUND ON TOP OF VARICOSE VEIN. Historical: - Allergies: 23:10 No Known Allergies; rv - Home Meds: 23:10 gabapentin oral oral [Active]; rv - PMHx: 23:10 Dementia; rv - PSHx: 23:10 None; rv - Immunization history:: Adult Immunizations up to date. - Social history:: Smoking status: Patient denies any tobacco usage or history of. Screenin:11 Abuse screen: Denies threats or abuse. Denies injuries from another. Nutritional rv screening: No deficits noted. Tuberculosis screening: No symptoms or risk factors identified. Fall Risk None identified. Assessment: 09/10 04:11 Reassessment: MADHU GUTIERREZ-SON [id number]. rv 05:05 Reassessment: TALKED TO THE PHONE WITH PATIENT'S SON, MADHU GUTIERREZ, CONSENT GIVEN FOR rv BLOOD TRANSFUSION, AWARE OF PLAN OF CARE. 07:00 Reassessment: RECD REPORT FROM [facility]. 89YO WM P/W BLEEDING LLE VARICOSITIES, H/O bp SAME. PT NOTED TO BE ANEMIC. BLOOD TRANSFUSING, CONFIRMED AT B/S. 08:00 Reassessment: 1ST UNIT PRBC COMPLETED. NO S/S ADVERSE REACTION. bp 08:30 Reassessment: 2ND PRBC STARTED. DR QUINTANA AT B/S. bp Vital Signs: 09/09 23:07 BP 146 / 16; Pulse 93; Resp 16; Temp 98.5; Pulse Ox 99% ; Weight 83.91 kg; Height 5 ft. rv 4 in. (162.56 cm); 23:33 BP 122 / 51; Pulse 87; Resp 16; Pulse Ox 99% ; rr5 02/06 00:30 BP 110 / 56; Pulse 76; Resp 16; Pulse Ox 99% on R/A; rv 01:22 BP 116 / 89; Pulse 86; Resp 19; Pulse Ox 99% ; rr5 02:20 BP 110 / 65; Pulse 89; Resp 15; Pulse Ox 98% ; rr5 03:00 BP 104 / 52; Pulse 82; Resp 17; Pulse Ox 97% ; rr5 03:53 BP 115 / 61; Pulse 92; Resp 15; Pulse Ox 97% ; rr5 07:00 BP 113 / 61; Pulse 74; Resp 21; Pulse Ox 98% ; bp 08:00 BP 119 / 56; Pulse 83; Resp 24; Temp 98.6; Pulse Ox 99% ; bp 08:30 BP 106 / 52; Pulse 83; Resp 24; Temp 98.6; Pulse Ox 99% ; bp 10:58 BP 118 / 55; Pulse 84; Resp 22; Pulse Ox 98% ; jl7 02 23:07 Body Mass Index 31.75 (83.91 kg, 162.56 cm) rv ED Course: 09/09 23:00 Maintain EMS IV. Dressing intact. Good blood return noted. Site clean \T\ dry. Gauge \T\ rv site: G20 LAC. 23:05 Patient arrived in ED. rv 23:07 Berger, Kit, MD is Attending Physician. 7 23:09 Triage completed. rv 23:11 Lanre Boland, RN is Primary Nurse. rv 23:11 Arm band placed on right wrist. Patient placed in the treatment room, on a stretcher, rv Patient notified of wait time. 23:11 Patient has correct armband on for positive identification. Pulse ox on. NIBP on. rv 02/06 03:29 Repeat lab(s) drawn. by co, sent to lab. rv 03:49 Notified ED physician of a critical lab result(s). Hgb 7.1. lp1 04:02 Joe Quintana MD is Hospitalizing Provider. 7 05:06 No provider procedures requiring assistance completed. rv 08:36 Patient admitted, IV remains in place. bp 09:00 Inserted saline lock: 20 gauge in right upper arm, using aseptic technique. bp Administered Medications: No medications were administered Outcome: 04:06 Decision to Hospitalize by Provider. mh7 08:36 Condition: stable bp 08:36 Instructed on the need for admit. 10:58 Admitted to Med/surg accompanied by [facility], via stretcher, room 218, with chart. jl7 10:59 Patient left the ED. jl7 Signatures: Stephanie Rodriguez RN RN lp1 Lyle Garza RN RN jl7 Gabe Rhodes, RN RN bp Lanre Boland, RN RN rv Niall Stanton, RN RN rr5 Kit Berger MD MD [facility] Corrections: (The following items were deleted from the chart) 10:58 08:30 Admitted to ER Hold. Please see [facility] for further documentation. jl7 jl7
--- NOTE | 2020-09-10 04:06 | EDPHYS ---
Physician Documentation [facility] Name: David Gutierrez Age: 89 yrs Sex: Male : 1930 Arrival Date: 09/09/2020 Time: 23:05 Bed 4 Private MD: ED Physician Kit Berger HPI: 09/09 23:28 This 89 yrs old Male presents to ER via EMS with complaints of Bleeding mh7 Varicose Vein. 23:28 The patient presents with Bleeding varicose vein on left foot. The complaints affect mh7 the left foot. Context: The problem was sustained at home, resulted from Wiping area while bathing, Mechanism of Injury: Wiping area while bathing the patient can fully bear weight, the patient is able to ambulate, without difficulty. Onset: The symptoms/episode began/occurred today. Modifying factors: The symptoms are alleviated by pressure to wound the symptoms are aggravated by rubbing skin on foot. Associated signs and symptoms: Pertinent negatives: calf tenderness, fever, nausea, numbness, rash, swelling, tingling, vomiting, warmth, weakness. Severity of symptoms: At their worst the symptoms were moderate, earlier today, in the emergency department the symptoms have resolved, and did so just prior to arrival. Historical: - Allergies: 23:10 No Known Allergies; rv - Home Meds: 23:10 gabapentin oral oral [Active]; rv - PMHx: 23:10 Dementia; rv - PSHx: 23:10 None; rv - Immunization history:: Adult Immunizations up to date. - Social history:: Smoking status: Patient denies any tobacco usage or history of. ROS: 23:28 Constitutional: Negative for fever, chills, and weight loss, Eyes: Negative for injury, mh7 pain, redness, and discharge, ENT: Negative for injury, pain, and discharge, Neck: Negative for injury, pain, and swelling, Cardiovascular: Negative for chest pain, palpitations, and edema, Respiratory: Negative for shortness of breath, cough, wheezing, and pleuritic chest pain, Abdomen/GI: Negative for abdominal pain, nausea, vomiting, diarrhea, and constipation, Back: Negative for injury and pain, : Negative for injury, bleeding, discharge, and swelling, Neuro: Negative for headache, weakness, numbness, tingling, and seizure, Psych: Negative for depression, anxiety, suicide ideation, homicidal ideation, and hallucinations, Allergy/Immunology: Negative for hives, rash, and allergies, Endocrine: Negative for neck swelling, polydipsia, polyuria, polyphagia, and marked weight changes, Hematologic/Lymphatic: Negative for swollen nodes, abnormal bleeding, and unusual bruising. Exam: 23:28 Constitutional: This is a well developed, well nourished patient who is awake, alert, mh7 and in no acute distress. Head/Face: Normocephalic, atraumatic. Eyes: Pupils equal round and reactive to light, extra-ocular motions intact. Lids and lashes normal. Conjunctiva and sclera are non-icteric and not injected. Cornea within normal limits. Periorbital areas with no swelling, redness, or edema. Neck: Trachea midline, no thyromegaly or masses palpated, and no cervical lymphadenopathy. Supple, full range of motion without nuchal rigidity, or vertebral point tenderness. No Meningismus. Chest/axilla: Normal chest wall appearance and motion. Nontender with no deformity. No lesions are appreciated. Cardiovascular: Regular rate and rhythm with a normal S1 and S2. No gallops, murmurs, or rubs. Normal PMI, no JVD. No pulse deficits. Respiratory: Lungs have equal breath sounds bilaterally, clear to auscultation and percussion. No rales, rhonchi or wheezes noted. No increased work of breathing, no retractions or nasal flaring. Abdomen/GI: Soft, non-tender, with normal bowel sounds. No distension or tympany. No guarding or rebound. No evidence of tenderness throughout. Back: No spinal tenderness. No costovertebral tenderness. Full range of motion. 23:28 Neuro: Awake and alert, GCS 15, oriented to person, place, time, and situation. Cranial nerves II-XII grossly intact. Motor strength 5/5 in all extremities. Sensory grossly intact. Cerebellar exam normal. Normal gait. Psych: Awake, alert, with orientation to person, place and time. Behavior, mood, and affect are within normal limits. 23:28 Musculoskeletal/extremity: Extremities: all appear grossly normal, with no appreciated pain with palpation, ROM: intact in all extremities, Circulation is intact in all extremities. Pulses: are normal with no appreciated deficits, Perfusion: the patient is normally perfused throughout, Perfusion: the extremity is normally perfused throughout, Calf tenderness, is absent, Edema, is not appreciated, Sensation intact. Compartment Syndrome exam of affected extremity: is normal. no pain, no numbness, no tingling, no sensation deficit, no palor, no weak pulses, Joints: All joints appear normal with full range of motion. Weight bearing: able to fully bear weight, without difficulty, Tendon exam: specific tendon testing normal through active and passive range of motion DVT Exam: no pain, no swelling, no tenderness, negative Homans' sign noted on exam, no appreciated bluish discoloration, no erythema, no increased warmth, Calves: are non-tender, have equal circumference, left foot dorsal and lateral varicose veins without active bleeding, small lateral varicose vein with scab . 23:28 Skin: Varicose veins on dorsal and lateral let foot without active bleeding. Vital Signs: 23:07 BP 146 / 16; Pulse 93; Resp 16; Temp 98.5; Pulse Ox 99% ; Weight 83.91 kg; Height 5 ft. rv 4 in. (162.56 cm); 23:33 BP 122 / 51; Pulse 87; Resp 16; Pulse Ox 99% ; rr5 02/06 00:30 BP 110 / 56; Pulse 76; Resp 16; Pulse Ox 99% on R/A; rv 01:22 BP 116 / 89; Pulse 86; Resp 19; Pulse Ox 99% ; rr5 02:20 BP 110 / 65; Pulse 89; Resp 15; Pulse Ox 98% ; rr5 03:00 BP 104 / 52; Pulse 82; Resp 17; Pulse Ox 97% ; rr5 03:53 BP 115 / 61; Pulse 92; Resp 15; Pulse Ox 97% ; rr5 07:00 BP 113 / 61; Pulse 74; Resp 21; Pulse Ox 98% ; bp 08:00 BP 119 / 56; Pulse 83; Resp 24; Temp 98.6; Pulse Ox 99% ; bp 08:30 BP 106 / 52; Pulse 83; Resp 24; Temp 98.6; Pulse Ox 99% ; bp 10:58 BP 118 / 55; Pulse 84; Resp 22; Pulse Ox 98% ; jl7 09/09 23:07 Body Mass Index 31.75 (83.91 kg, 162.56 cm) rv MDM: 03:59 Differential diagnosis: symptomatic anemia, bleeding varicose vein. Data reviewed: mh7 vital signs, nurses notes, lab test result(s), cardiac enzymes, CBC, electrolytes, urinalysis, EKG. Data interpreted: Pulse oximetry: on room air is 97 %. Interpretation: normal. Counseling: I had a detailed discussion with the patient and/or guardian regarding: the historical points, exam findings, and any diagnostic results supporting the discharge/admit diagnosis, lab results. Response to treatment: the patient's symptoms have markedly improved after treatment. 04:06 Patient medically screened. [facility] 09/09 23:08 Order name: CBC with Diff [facility] 09/09 23:08 Order name: Basic Metabolic Panel [facility] 09/09 23:08 Order name: LFT's [facility] 09/09 23:08 Order name: Protime (+inr); Complete Time: 00:14 [facility] 09/09 23:08 Order name: Ptt, Activated; Complete Time: 00:14 [facility] 09/09 23:09 Order name: CBC with Automated Diff; Complete Time: 00:13 [facility] 09/09 23:09 Order name: Basic Metabolic Panel; Complete Time: 00:14 [facility] 09/09 23:09 Order name: Liver (Hepatic) Function; Complete Time: 00:14 [facility] 09/09 23:27 Order name: Type And Screen [facility] 09/09 23:27 Order name: Troponin (emerg Dept Use Only); Complete Time: 01:44 [facility] 09/10 03:16 Order name: Hemoglobin; Complete Time: 03:55 [facility] 09/10 03:16 Order name: Hematocrit; Complete Time: 03:55 [facility] 09/09 23:27 Order name: EKG - Nurse/Tech; Complete Time: 00:16 [facility] 09/10 03:58 Order name: Transfuse; Complete Time: 06:47 [facility] 09/10 04:11 Order name: Packed RBC Leukored [facility] 09/10 04:21 Order name: CONS Pharmacy Consult [facility] 09/10 04:21 Order name: Troponin I [facility] 09/10 04:21 Order name: Troponin I [facility] 09/10 04:21 Order name: Heart Healthy [facility] 09/10 04:23 Order name: Chest Single View XRAY [facility] 09/10 04:23 Order name: Ankle Left 3 View XRAY [facility] 09/10 05:02 Order name: SARS-COV-2 RT PCR [facility] 09/10 08:30 Order name: RAD [facility] 09/10 08:31 Order name: RAD EDNJ Administered Medications: No medications were administered Disposition: 09/10/20 04:06 Hospitalization ordered by Joe Quintana for Observation. Preliminary diagnosis are Symptomatic Anemia, Left Ankle Varicose Vein Bleeding-Resolved. - Bed requested for Telemetry/MedSurg (observation). - Status is Observation. jl7 - Condition is Stable. - Problem is new. - Symptoms have improved. Signatures: Dispatcher [employer] EDNJ KerryadrianaMaurice, GROUP FITNESS MANAGER-C GROUP FITNESS MANAGER-Cla1 Lyle Garza RN RN jl7 Philip Gore RN RN ja1 Sabrina Hopkins Ronaldo RN RN Kit Moreno MD MD mh7 Corrections: (The following items were deleted from the chart) 04:11 03:58 CORONAVIRUS+MR.LAB.BRZ ordered. EDNJ EDNJ 04:11 03:58 PACKED RBC LEUKORED -1+BB.LAB.BRZ ordered. EDNJ EDNJ 04:11 03:59 ABO/RH typing ordered. EDNJ EDNJ 04:11 03:59 Antibody Screen ordered. [facility] EDNJ 08:29 04:06 Hospitalization Ordered by Joe Quintana MD for Observation. Preliminary diagnosis eb is Symptomatic Anemia; Left Ankle Varicose Vein Bleeding-Resolved. Bed requested for Telemetry/MedSurg (observation). Status is Observation. Condition is Stable. Problem is new. Symptoms have improved. 7 08:29 08:29 09/10/2020 04:06 Hospitalization Ordered by Joe Quintana MD for Observation. ja1 Preliminary diagnosis is Symptomatic Anemia; Left Ankle Varicose Vein Bleeding-Resolved. Bed requested for Telemetry/MedSurg (observation). Status is Observation. Condition is Stable. Problem is new. Symptoms have improved. eb 10:59 08:29 09/10/2020 04:06 Hospitalization Ordered by Joe Quintana MD for Observation. jl7 Preliminary diagnosis is Symptomatic Anemia; Left Ankle Varicose Vein Bleeding-Resolved. Bed requested for Telemetry/MedSurg (observation). Status is Observation. Condition is Stable. Problem is new. Symptoms have improved. ja1
[2020-09-10] MEDS ORDERED: ACETAMINOPHEN 325 MG TABLET PO PRN (04:14)
[2020-09-10] MEDS ORDERED: MORPHINE 2 MG/ML SYR IV PRN (04:14)
[2020-09-10] MEDS ORDERED: ONDANSETRON 4 MG/2 ML VIAL IV PRN (04:14)
[2020-09-10] MEDS ORDERED: NA CHLORIDE 0.9% 100 ML ONE (05:18)
--- NOTE | 2020-09-10 08:29 | RAD REPORT ---
EXAM DESCRIPTION: RAD - Chest Single View - 09/10/2020 5:28 am CLINICAL HISTORY: symptomatic Anemia, hypotensive COMPARISON: December 2016 CT chest, May 2015 portable chest TECHNIQUE: AP portable chest image was obtained 09/10/2020 5:28 am . FINDINGS: No focal mass or consolidations seen. Interstitial pattern is increased fractionally from the prior study. Interval change is minimal but could mask a mild edema or interstitial infiltrate. Cardiac silhouette is within normal limits. Patient is rotated which distorts the heart size. Widened mediastinum can be accounted for by the known dilated ascending aorta. Patient has a large hiatal he rnia which contributes to mediastinal enlargement at the base. No measurable pleural effusion and no pneumothorax. No acute bony abnormality seen. No acute aortic findings suspected. IMPRESSION: No focal mass or consolidation. Baseline interstitial pattern could mask minimal edema o r infiltrate. Widened mediastinum due to rotation and known dilated ascending aorta.
--- NOTE | 2020-09-10 08:30 | RAD REPORT ---
EXAM DESCRIPTION: RAD - Ankle Left 3 View - 09/10/2020 5:28 am CLINICAL HISTORY: bleeding wound COMPARISON: No comparisons FINDINGS: No fracture, dislocation or periosteal reaction. No joint effusion seen. No joint space na rrowing. Punctate calcifications are present within the Achilles and plantar tendons at the calcaneus insertion. No erosive or destructive bone process seen. No air or foreign body seen in the soft tissues. IMPRESSION: Negative left ankle for fracture or other acute finding.
[2020-09-10 11:16] VITALS: O2SAT 98
[2020-09-10 11:38] VITALS: BMI 31.7
[2020-09-10 14:12] LABS: Hematocrit 29.3 % (39.6-49.0)
[2020-09-10 15:09] LABS: Platelet Estimate ND
[2020-09-10 15:10] VITALS: BP 120/57; TEMP 98.1
--- NOTE | 2020-09-10 17:01 | P.SSS ---
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 HE TENDS TO SCRATCH SCAB AND IT BLEEDS AGAIN. I GAVE HIM TWO UNITS OF PACKED RBCS, TALKED TO SON, ADVISED HIM TO TAKE HIM TO DR. BUCIO FOR FEEDER CAUTERIZATION AND DISCHARGED HIM HE IS STABLE AND ALSO WITH DEMENTIA HE GETS SUNDOWNERS. Allergies No Known Allergies Allergy (Verified 11/20/18 17:02) Home Medications: Alendronate Sodium/Vitamin D3 [Fosamax Plus D 70 mg-2,800 Iu] 70 mg PO EVERY 7TH DAY 05/09/15 Gabapentin 100 mg PO DAILY 11/20/18 - Past Medical/Surgical History Has patient received pneumonia vaccine in the past: No Diabetic: No -: Dementia -: GILLIAN KNEE REPLACEMENT -: HERNIA SURGERY -: TONSILLECTOMY - Family History Father -: Diabetes - Social History Smoking Status: Never smoker Alcohol use: No CD- Drugs: No Caffeine use: Yes Place of Residence: Home Review of Systems 10-point ROS is otherwise unremarkable Physical Examination - Vital Signs Temperature: 98.1 F Blood Pressure: 120/57 Pulse: 79 Respirations: 20 Pulse Ox (%): 97 - Physical Exam General: In no apparent distress HEENT: Atraumatic, PERRLA, Mucous membr. moist/pink, EOMI, Sclerae nonicteric Neck: Supple, 2+ carotid pulse no bruit, No LAD, Without JVD or thyroid abnormality Respiratory: Clear to auscultation bilaterally, Normal air movement Cardiovascular: Regular rate/rhythm, Normal S1 S2 Gastrointestinal: Normal bowel sounds, No tenderness Musculoskeletal: No tenderness Integumentary: No rashes Neurological: Normal gait, Normal speech, Normal strength at 5/5 x4 extr, Normal tone, Normal affect Lymphatics: No axilla or inguinal lymphadenopathy - Studies Laboratory Data (last 24 hrs) 09/10/20 03:20: Hgb 7.1 L*, Hct 21.7 L D 09/09/20 23:15: PT 11.3, INR 0.98, APTT 25.2 09/09/20 23:15: Sodium 143, Potassium 4.2, BUN 23 H, Creatinine 1.34 H, Glucose 180 H, Total Bilirubin 0.2, AST 19, ALT 17, Alkaline Phosphatase 46 09/09/20 23:15: WBC 13.40 H, Hgb 8.7 L, Hct 27.3 L, Plt Count 342 - Diagnosis (Problem(s)) (1) Bleeding from varicose vein Status: Acute Plan: I EXPLAINED SON TO GET LIQUID BANDAID AND TREAT THE AREA DAILY SO FATHER DOES NOT TAKE THE SCAB OFF. HE IS GIVEN ADDRESS AND NUMBER FOR [facility] IN [place]. (2) Anemia Status: Acute Plan: TRANSFUSED TWO UNITS TO BRING HG FROM 7.1 TO 9.8. NO SIGNS OF ANY GI BLEEDING. - Disposition Disposition: ROUTINE DISCHARGE
== END 2020-09-10 16:04 | disposition home or self-care (01) | DRG 300 ==
LOC: ER 23:03 → ERHOLD 09-10 04:09 → 2ND 09-10 10:51
PROVIDERS: ADMIT Internal Medicine; ATTEND Internal Medicine
PROC: 30233N1 Transfusion of Nonautologous Red Blood Cells into Peripheral Vein, Percutaneous Approach (ICD-10-PCS; principal; 2020-09-10)
DX: I83.899 Varicose veins of unspecified lower extremity with other complications (principal); F05 Delirium due to known physiological condition; G30.9 Alzheimer's disease, unspecified; F02.80 Dementia in other diseases classified elsewhere, unspecified severity, without behavioral disturbance, psychotic disturbance, mood disturbance, and anxiety; D64.9 Anemia, unspecified; M40.209 Unspecified kyphosis, site unspecified; Z79.899 Other long term (current) drug therapy; Z96.653 Presence of artificial knee joint, bilateral; Z20.822 Contact with and (suspected) exposure to COVID-19
CPT/HCPCS: 36415; 71045; 80048; 80076; 84484; 85014; 85018; 85025; 85049; 85610; 85730; 86850; 86900; 86901; 93005; 99285; P9016; U0003